=== PATIENT | male | born 1990 | race African-American/Black ===

== ENCOUNTER 2024-05-19 09:00 | Emergency (ER) | payer OTHER ==
[2024-05-19] MEDS ORDERED: Ketorolac Tromethamine 30 MG (1 mL) VIAL ONE (09:40)
== END 2024-05-19 09:52 | disposition home or self-care (01) ==
LOC: ERS 09:00
DX: S29.012A Strain of muscle and tendon of back wall of thorax, initial encounter (principal); I10 Essential (primary) hypertension; K21.9 Gastro-esophageal reflux disease without esophagitis; X58.XXXA Exposure to other specified factors, initial encounter; Z79.899 Other long term (current) drug therapy
CPT/HCPCS: J1885